=== PATIENT | female | born 1995 | race Caucasian/White ===

== ENCOUNTER 2023-02-26 11:45 | Outpatient (AMB) | payer OTHER, SELFPAY ==
[2023-02-26 13:15] VITALS: BP 118/72; PULSE 110; TEMP 36.7; O2SAT 96; BMI 32.1
--- NOTE | 2023-02-26 13:15 | MHC.OFFWIV ---
Intake Vital Signs 02/26/23 13:15 Height 5 ft 2 in Weight 175 lb 4 oz BMI 32.1 BP 118/72 Blood Pressure Location Lt brachial Position Sitting Pulse 110 H Pulse Source Pulse Oximeter Temp 98.1 F Temp Source Oral Pulse Oximetry (%) 96 Oxygen Delivery Method Room Air Intake Visit Reasons: ESTCough and chest congestion ([phone]) Intake Note: pt is here for c.o cough, chest congestion, coughing out green phlem, for 2 weeks Patient Tobacco Use Status: Never used Tobacco Allergies No Known Allergies [No Known Allergies*] Allergy (Verified 02/26/23 13:16) Medication List - Last Reconciled 02/26/23 by Michelle Leal NP azithromycin 500 mg PO DAILY 3 days benzonatate 100 mg PO TID Do you need a note to return to daycare/school/sports/work: Yes HPI HPI Comments History of Present Illness Details 27 y/o female presents to walk in clinic with c/o cough and chest congestion x 2 weeks. [facility] Social History Patient Tobacco Use Status: Never used Tobacco Review of Systems Const All systems reviewed & are unremarkable except as noted in HPI and below Physical Exam Vital Signs: Last Vital Signs Temp 98.1 F 02/26/23 13:15 Pulse 110 H 02/26/23 13:15 BP 118/72 02/26/23 13:15 Pulse Ox 96 02/26/23 13:15 Oxygen Delivery Method Room Air 02/26/23 13:15 BMI result Body Mass Index 32.1 Const General: no acute distress HEENT Head: Yes normocephalic Ears: external ears normal and TM's normal bilaterally General nose exam: Normal nasal mucous membranes and turbinates present and Nasal discharge present Face and sinus: Yes normal facial exam and Yes sinuses nontender Mouth: Normal oral and palatal mucosa present and oropharynx normal Throat: Yes posterior oropharynx normal Resp Effort & Inspection: normal respiratory effort Auscultation: clear to auscultation bilaterally Cardio Rate: regular rate Rhythm: regular rhythm Assessment & Plan Assessment & Plan (1) Acute pharyngitis: Code(s): J02.9 - Acute pharyngitis, unspecified Qualifiers: Pharyngitis/tonsillitis etiology: other specified organisms Qualified Code(s): J02.8 - Acute pharyngitis due to other specified organisms Plan: - Rest -Hydrate with warm fluids. -OTC cold remedies. (2) Cough in adult: Code(s): R05.9 - Cough, unspecified Plan: - Rest -Hydrate with warm fluids. -OTC cold remedies. Medications: New benzonatate 100 mg PO TID 30 caps 0RF azithromycin 500 mg PO DAILY 3 days 3 tabs 0RF Coding Level of Care Code Est Pt Level 3 (84037) Diagnoses Acute pharyngitis due to other specified organisms J02.8 Pharyngitis/tonsillitis etiology: other specified organisms Cough in adult R05.9 Time Spent (min) 15
== END 2023-02-26 14:06 | disposition home or self-care (01) ==
PROVIDERS: Visit Provider Nurse Practitioner Family
DX: J02.9 Acute pharyngitis, unspecified (principal); R05.9 Cough, unspecified
CPT/HCPCS: 99213